=== PATIENT | female | born 1995 | race African-American/Black ===

== ENCOUNTER 2017-10-12 22:45 | Emergency (ER) | payer MEDICAID ==
[~2017-10-12] VITALS: Ht 167.6 cm; Wt 78.0 kg
[~2017-10-12 22:45] MED LIST: IBUPROFEN600 MG ORAL; NKM; PENICILLIN V P500 MG PO; TRAMADOL HCL50 MG ORAL; ZOFRAN ODT4 MG ORAL
[2017-10-12] MEDS ORDERED: Bacitracin Oint UD TOPIC ONE ×2 (23:26→23:30)
[2017-10-13] MEDS ORDERED: IBUPROFEN600 MG ORAL (00:04)
[2017-10-13] MEDS ORDERED: MUPIROCIN22 GM TOPIC (00:04)
--- NOTE | 2017-10-13 00:05 | Emergency Room Report ---
History of Present Illness General Chief Complaint: Lower Extremity Injury Source: Patient Present Illness [facility] This is a 22-year-old female with no past medical history. She presents with chief complaint of right toe pain. She said she slipped on the mud and jammed her foot on the ground. She has a skin avulsion to the great toe on the right side. Also with toe pain. Pain is 7/10. Worse with walking. Allergies: Coded Allergies: No Known Allergies (Unverified , 09/16/14) Patient History Past Medical History: see triage record, old chart reviewed Past Surgical History: none Pertinent Family History: none Social History: Denies: smoking Last Menstrual Period: oct 04 Now: No : 0 Para: 0 Immunizations: other Reviewed Nursing Documentation: PMH: Agreed, PSxH: Agreed Review of Systems Eye: Denies: eye pain, blurred vision ENT: Denies: ear pain, nose congestion, throat swelling Respiratory: Denies: cough, shortness of breath Cardiovascular: Denies: chest pain, palpitations Gastrointestinal: Denies: abdominal pain, diarrhea, nausea, vomiting Musculoskeletal: Reports: joint pain, Denies: back pain Skin: Denies: rash Neurological: Denies: headache, numbness Endocrine: Denies: increased thirst, increased urine Hematologic/Lymphatic: Denies: easy bruising All Other Systems: negative except mentioned in HPI Physical Exam Vital Signs Date Time Temp Pulse Resp B/P (MAP) Pulse Ox O2 Delivery O2 Flow Rate FiO2 10/12/17 22:52 98.1 84 18 105/68 98 Room Air vitals normal Sp02 EP Interpretation: reviewed, normal General Appearance: well appearing, no apparent distress, alert Head: normocephalic, atraumatic Eyes: bilateral eye PERRL, bilateral eye EOMI ENT: hearing grossly normal, normal pharynx Neck: full range of motion, supple, no meningismus Respiratory: chest non-tender, lungs clear, normal breath sounds Cardiovascular #1: regular rate, rhythm, no murmur Gastrointestinal: normal bowel sounds, non tender, no mass, no organomegaly, no bruit, non-distended Musculoskeletal: back normal, gait/station normal, normal range of motion, other - Right great toe: Tender over the middle phalanx. She also has a almost complete skin avulsion of 1 cm. Capillary refill normal. Sensation normal. Neurologic: alert, oriented x3 Psychiatric: mood/affect normal Skin: warm/dry Procedures Splinting Splinting : Consent: Verbal Location: Great toe Pre-Made Type: deedee taping Pre-Proc Neuro Vasc Exam: normal - But he taking Post-Proc Neuro Vasc Exam: normal Patient Tolerated: Well Complications: None Medical Decision Making Diagnostic Impression: Primary Impression: Avulsion of skin of toe Qualified Codes: S91.109A - Unspecified open wound of unspecified toe(s) without damage to nail, initial encounter Additional Impression: Toe fracture, right Qualified Codes: S92.414A - Nondisplaced fracture of proximal phalanx of right great toe, initial encounter for closed fracture ER Course Patient presents with toe injury and skin avulsion a nondisplaced fracture on one view of the x-ray. No dislocation. Other X-Ray Diagnostic Results Other X-Ray Diagnostic Results : X-Ray ordered: X-ray right foot # of Views/Limited Vs Complete: 3 View Indication: Pain EP Interpretation: Yes Interpretation: no dislocation, no soft tissue swelling, other - Nondisplaced fracture of proximal phalanx Impression: Other - Undisplaced fracture Electronically Signed by: Rafi Porter MD Last Vital Signs Date Time Temp Pulse Resp B/P (MAP) Pulse Ox O2 Delivery O2 Flow Rate FiO2 10/12/17 22:52 98.1 84 18 105/68 98 Room Air Status: improved Disposition: HOME, SELF-CARE Condition: Stable Scripts Mupirocin* (MUPIROCIN*) 22 Gm Oint...g. 1 APPLIC TOPIC THREE TIMES A DAY, #22 GM Prov: RAFI PORTER M.D. 10/13/17 Ibuprofen* (MOTRIN*) 600 Mg Tablet 600 MG ORAL THREE TIMES A DAY, #30 TAB 0 Refills Prov: RAFI PORTER M.D. 10/13/17 Additional Instructions: Followup with your DrRichard in 7 days. Return if symptom worsen. RAFI PORTER M.D. Oct 13, 2017 00:05
[2017-10-13 00:10] VITALS: BP 105/68
--- NOTE | 2017-10-13 10:18 | Diagnostic Imaging Report ---
Indications: Reason For Exam: TRAUMA Technique: 3 views of the right foot Comparison: None Findings: There is a nondisplaced fracture of the medial head of the first proximal phalanx. No other acute fractures. No dislocations. Joint spaces are preserved. There is metatarsus adductus. Impression: Positive for nondisplaced corner fracture of the first proximal phalangeal head This agrees with the preliminary interpretation provided by the emergency room physician
== END 2017-10-13 00:10 | disposition home or self-care (01) ==
LOC: EMR 23:30
DX: S92.414A Nondisplaced fracture of proximal phalanx of right great toe, initial encounter for closed fracture (principal); S91.109A Unspecified open wound of unspecified toe(s) without damage to nail, initial encounter; W22.8XXA Striking against or struck by other objects, initial encounter; Y92.9 Unspecified place or not applicable
CPT/HCPCS: 99283